=== PATIENT | female | born 1990 | race Caucasian/White ===

== ENCOUNTER 2020-12-24 23:21 | Emergency (ER) | payer OTHER ==
[2020-12-25] MEDS ORDERED: BACTRIM DS TAB1 EACH PO (02:03)
[2020-12-25] MEDS ORDERED: CEPHALEXIN500 M1 PO (02:03)
[2020-12-25] MEDS ORDERED: IBUPROFEN800 MG PO (02:03)
== END 2020-12-25 02:13 | disposition home or self-care (01) ==
LOC: ER1 23:21
DX: L03.116 Cellulitis of left lower limb (principal); F17.200 Nicotine dependence, unspecified, uncomplicated; Z79.899 Other long term (current) drug therapy
CPT/HCPCS: 99283